=== PATIENT | male | born 1990 | race Hispanic/Latino ===

== ENCOUNTER → 2022-07-13 | Day surgery (SDC) | payer SELFPAY ==
[~2022-07-13] MED LIST: Sodium Chloride 0.9% 0 ML ONE; Sodium Chloride 0.9% 100 ML ONE; cefTRIAXone\\ROCEPHIN 1 GM VIAL ONE; cefTRIAXone\\ROCEPHIN 2 GM VIAL ONE
== END | disposition home or self-care (01) ==
LOC: NAV ER/OP 10:09
PROVIDERS: ATTEND Internal Medicine
DX: A41.01 Sepsis due to Methicillin susceptible Staphylococcus aureus (principal); S91.301A Unspecified open wound, right foot, initial encounter
CPT/HCPCS: J0696; J1642; J3490

== ENCOUNTER → 2022-07-14 | Day surgery (SDC) | payer SELFPAY ==
[~2022-07-14] MED LIST changes: -Sodium Chloride 0.9% 0 ML ONE; -cefTRIAXone\\ROCEPHIN 1 GM VIAL ONE
== END | disposition home or self-care (01) ==
LOC: NAV ER/OP 10:45
PROVIDERS: ATTEND Internal Medicine
DX: A41.01 Sepsis due to Methicillin susceptible Staphylococcus aureus (principal); S91.301A Unspecified open wound, right foot, initial encounter
CPT/HCPCS: J0696; J1642; J3490

== ENCOUNTER → 2022-07-16 | Day surgery (SDC) | payer SELFPAY | END | disposition home or self-care (01) | LOC: NAV ER/OP 10:58 | PROVIDERS: ATTEND Emergency Medicine | DX: A41.01 Sepsis due to Methicillin susceptible Staphylococcus aureus (principal); S91.301A Unspecified open wound, right foot, initial encounter | CPT/HCPCS: J1642 ==

== ENCOUNTER → 2022-07-17 | Day surgery (SDC) | payer SELFPAY ==
[2022-07-17 11:14] LABS: Anion Gap 15 mmol/L (10-20); BUN (Urea Nitrogen) 40 mg/dL (8.9-20.6); Calc. Creatinine Clearance 0 mL/min (70-130); Carbon Dioxide 21 mmol/L (22-29); Chloride 104 mmol/L (98-107); Estimated GFR 84; Glucose 206 mg/dL (70-105); Potassium 5.4 mmol/L (3.5-5.1); Sodium 135 mmol/L (136-145)
[2022-07-17 11:27] LABS: Hemoglobin 12.5 g/dL (14.0-18.0); Mean Corpuscular HGB CONC 33.8 g/dL (32.0-36.0); Mean Corpuscular Hemoglobin 30.4 pg (27.0-31.0); Mean Corpuscular Volume 90.1 fl (78.0-98.0); Mean Platelet Volume 7.4 fL (7.4-10.4); Platelet Count 495 10x3/uL (130-400); RBC Distribution Width 12.4 % (11.5-14.5)
== END | disposition home or self-care (01) ==
LOC: NAV ER/OP 09:07
PROVIDERS: ATTEND Family Medicine
DX: A41.01 Sepsis due to Methicillin susceptible Staphylococcus aureus (principal); S91.301A Unspecified open wound, right foot, initial encounter
CPT/HCPCS: 36415; 80048; 85027; 96365; J0696; J1642; J3490

== ENCOUNTER → 2022-07-19 | Day surgery (SDC) | payer SELFPAY | END | disposition home or self-care (01) | LOC: NAV ER/OP 10:55 | PROVIDERS: ATTEND Emergency Medicine | DX: A41.01 Sepsis due to Methicillin susceptible Staphylococcus aureus (principal); S91.301A Unspecified open wound, right foot, initial encounter | CPT/HCPCS: 96365; J0696; J1642; J3490 ==

== ENCOUNTER → 2022-07-22 | Day surgery (SDC) | payer SELFPAY ==
[~2022-07-22] MED LIST changes: +Sodium Chloride 0.9% 1,000 ML ONE
[2022-07-22 11:54] LABS: Anion Gap 14 mmol/L (10-20); BUN (Urea Nitrogen) 36 mg/dL (8.9-20.6); Calc. Creatinine Clearance 0 mL/min (70-130); Calcium 8.9 mg/dL (7.8-10.44); Carbon Dioxide 21 mmol/L (22-29); Chloride 108 mmol/L (98-107); Estimated GFR 57; Glucose 227 mg/dL (70-105); Potassium 5.4 mmol/L (3.5-5.1); Sodium 138 mmol/L (136-145)
== END | disposition home or self-care (01) ==
LOC: NAV ER/OP 10:50
PROVIDERS: ATTEND Internal Medicine
DX: A41.01 Sepsis due to Methicillin susceptible Staphylococcus aureus (principal); S91.301A Unspecified open wound, right foot, initial encounter
CPT/HCPCS: 36415; 80048; J0696; J3490; J7050

== ENCOUNTER 2023-07-13 07:24 | Emergency (ER) | payer OTHER ==
[2023-07-13 08:28] LABS: #Basophils 0.1 thou/uL (0.0-0.2); #Eosinphils 0.2 thou/uL (0.0-0.7); #Lymphocytes 1.5 thou/uL (1.20-3.40); #Monocytes 0.5 thou/uL (0.11-0.59); #Neutrophils 10.7 thou/uL (1.40-6.50); %Eosinophils 1.2 % (0.0-10.0); %Lymphocytes 11.5 % (21.0-51.0); %Monocytes 3.6 % (0.0-10.0); %Neutrophils 82.6 % (42.0-75.0); Hematocrit 43.3 % (42.0-52.0); Hemoglobin 14.9 g/dL (14.0-18.0); Mean Corpuscular HGB CONC 34.5 g/dL (32.0-36.0); Mean Corpuscular Hemoglobin 30.2 pg (27.0-31.0); Mean Corpuscular Volume 87.5 fl (78.0-98.0); Mean Platelet Volume 7.8 fL (7.4-10.4); Platelet Count 403 10x3/uL (130-400); Red Blood Cell (RBC) Count 4.95 mill/uL (4.70-6.10); White Blood Cell (WBC) Count 12.9 10x3/uL (4.8-10.8)
[2023-07-13 08:42] LABS: Troponin I Less than 0.010 ng/mL (< 0.028)
[2023-07-13 08:45] LABS: ALT (SGPT) 15 U/L (8-55); AST (SGOT) 14 U/L (5-34); Albumin 2.5 g/dL (3.5-5.0); Alkaline Phosphatase 149 U/L (40-110); Anion Gap 13 mmol/L (10-20); BUN (Urea Nitrogen) 14 mg/dL (8.9-20.6); Bilirubin, Total 0.3 mg/dL (0.2-1.2); Calc. Creatinine Clearance 0 mL/min (70-130); Calcium 7.9 mg/dL (7.8-10.44); Carbon Dioxide 22 mmol/L (22-29); Chloride 104 mmol/L (98-107); Estimated GFR 84; Glucose 283 mg/dL (70-105); Potassium 4.1 mmol/L (3.5-5.1); Protein, Total 5.5 g/dL (6.0-8.3); Sodium 135 mmol/L (136-145)
== END 2023-07-13 09:43 | disposition home or self-care (01) ==
LOC: NAV ERS 07:24
DX: R60.0 Localized edema (principal); I10 Essential (primary) hypertension; D72.829 Elevated white blood cell count, unspecified; E11.9 Type 2 diabetes mellitus without complications; E78.5 Hyperlipidemia, unspecified; Z79.84 Long term (current) use of oral hypoglycemic drugs
CPT/HCPCS: 71045; 80053; 83880; 84484; 85025; 93005; 94760

== ENCOUNTER 2023-10-18 11:05 | Emergency (ER) | payer OTHER, SELFPAY | END 2023-10-18 11:40 | disposition home or self-care (01) | LOC: NAV ERS 11:05 | DX: L03.032 Cellulitis of left toe (principal); E11.9 Type 2 diabetes mellitus without complications; I10 Essential (primary) hypertension; Z79.84 Long term (current) use of oral hypoglycemic drugs; Z79.899 Other long term (current) drug therapy | CPT/HCPCS: 99283 ==

== ENCOUNTER 2024-03-06 14:32 | Emergency (ER) | payer SELFPAY | END 2024-03-06 15:11 | disposition home or self-care (01) | LOC: NAV ERS 14:32 | DX: T25.222A Burn of second degree of left foot, initial encounter (principal); L03.115 Cellulitis of right lower limb; I10 Essential (primary) hypertension; E11.40 Type 2 diabetes mellitus with diabetic neuropathy, unspecified; X10.2XXA Contact with fats and cooking oils, initial encounter | CPT/HCPCS: 99283 ==